=== PATIENT | male | born 1985 | race Caucasian/White ===

== ENCOUNTER 2019-11-17 14:26 | Emergency (ER) | payer OTHER ==
[~2019-11-17] VITALS: Ht 180.3 cm; Wt 99.8 kg
[2019-11-17] MEDS ORDERED: ZESTRIL10 MG PO (14:42)
[2019-11-17] MEDS ORDERED: CLOMIPHENE CITR50 MG PO (14:42)
[2019-11-17] MEDS ORDERED: LEXAPRO 10 MG T10 M1 PO (14:42)
[2019-11-17] MEDS ORDERED: VIAGRA100 MG PO (14:43)
[2019-11-17 15:15] LABS: INFLUENZA A ANTIGEN Negative (Negative); INFLUENZA B ANTIGEN Negative (Negative)
[2019-11-17 16:36] LABS: ABSOLUTE BASOPHILS 0.1 thou/uL (0.0-0.2); ABSOLUTE EOSINOPHILS 0.2 thou/uL (0.0-0.7); ABSOLUTE LYMPHOCYTES 1.4 thou/uL (0.8-5.3); ABSOLUTE NEUTROPHILS 6.6 thou/uL (1.6-8.1); BASOPHILS 0.8 %; HEMATOCRIT 41.1 % (42.0-52.0); HEMOGLOBIN 14.1 gm/dL (14.0-18.0); LYMPHOCYTES 15.2 %; MCH 30.2 pg (26.0-34.0); MCHC 34.3 g/dL (28.0-37.0); MCV 88.2 fL (80.0-100.0); MONOCYTES 11.3 %; MPV 8.6 fl. (7.2-11.1); NUCLEATED RBCS 0 /100WBC; PLATELET COUNT* 332 thou/uL (150-400); POLYS 70.7 %; RBC 4.66 mil/uL (4.50-6.00); RDW-CV 12.6 % (10.5-14.5); WBC 9.3 thou/uL (4.0-11.0)
[2019-11-17 16:51] LABS: CALCIUM 9.7 mg/dL (8.5-10.1); CREATININE 1.1 mg/dL (0.6-1.3); POTASSIUM 4.3 mmol/L (3.5-5.1)
[2019-11-17 16:56] LABS: ALBUMIN 3.9 g/dL (3.4-5.0); TOTAL BILIRUBIN 0.3 mg/dL (<0.1-1.0); TOTAL PROTEIN 8.4 g/dL (6.4-8.2)
[2019-11-17] MEDS ORDERED: MEDROL DOSPAK21 TA1 PO (16:57)
[2019-11-17] MEDS ORDERED: TESSALON PERLE100 MG PO (16:57)
[2019-11-17] MEDS ORDERED: VENTOLIN HFA 1818 GM INH (16:57)
[2019-11-17] MEDS ORDERED: AZITHROMYCIN 2250 MG PO (16:57)
[2019-11-17 17:12] VITALS: BP 118/96
== END 2019-11-17 17:13 | disposition home or self-care (01) ==
LOC: M.ERS 14:26
PROVIDERS: Emergency Medicine; Nurse Practitioner Family
DX: J40 Bronchitis, not specified as acute or chronic (principal); I10 Essential (primary) hypertension; J18.9 Pneumonia, unspecified organism; Z79.899 Other long term (current) drug therapy

== ENCOUNTER 2019-12-21 00:11 | Emergency (ER) | payer OTHER ==
[~2019-12-21] VITALS: Ht 180.3 cm; Wt 90.7 kg
[~2019-12-21 00:11] MED LIST: AZITHROMYCIN 2250 MG PO; CLOMIPHENE CITR50 MG PO; LEXAPRO 10 MG T10 M1 PO; MEDROL DOSPAK21 TA1 PO; TESSALON PERLE100 MG PO; VENTOLIN HFA 1818 GM INH; VIAGRA100 MG PO; ZESTRIL10 MG PO
[2019-12-21] MEDS ORDERED: CLOMIPRAMINE HC50 M1 PO (00:24)
[2019-12-21 01:03] LABS: ABSOLUTE BASOPHILS 0.1 thou/uL (0.0-0.2); ABSOLUTE EOSINOPHILS 0.2 thou/uL (0.0-0.7); ABSOLUTE MONOCYTES 0.6 thou/uL (0.0-1.2); ABSOLUTE NEUTROPHILS 3.8 thou/uL (1.6-8.1); BASOPHILS 0.8 %; EOSINOPHILS 2.3 %; HEMATOCRIT 43.1 % (42.0-52.0); HEMOGLOBIN 14.5 gm/dL (14.0-18.0); LYMPHOCYTES 29.7 %; MCH 30.1 pg (26.0-34.0); MCHC 33.7 g/dL (28.0-37.0); MCV 89.3 fL (80.0-100.0); NUCLEATED RBCS 0 /100WBC; PLATELET COUNT* 237 thou/uL (150-400); POLYS 58.2 %; RBC 4.83 mil/uL (4.50-6.00); RDW-CV 13.3 % (10.5-14.5); WBC 6.6 thou/uL (4.0-11.0)
[2019-12-21 01:08] LABS: CALCIUM 8.6 mg/dL (8.5-10.1); POTASSIUM 3.5 mmol/L (3.5-5.1)
[2019-12-21 01:18] LABS: INR 1.1; PROTIME 11.3 Seconds (9.20-11.50)
[2019-12-21 01:19] LABS: TOTAL BILIRUBIN 0.7 mg/dL (<0.1-1.0); TOTAL PROTEIN 7.5 g/dL (6.4-8.2)
[2019-12-21 02:12] VITALS: BP 142/97
--- NOTE | 2019-12-31 13:53 | EKG ---
[place] [address] ELECTROCARDIOGRAM REPORT Name: DUDLEY SPARKS Room: [facility]#: [id number] Admission: 12/21/19 Attend Phys: Discharge: 12/21/19 Date of : 81 Date of Service: 12/21/19 0018 Report #: [id number] THIS REPORT FOR: cc: TOD - Zo family physician/PCP TOD - Zo family physician/PCP Moody Carrasco MD LOCATED WITHIN [facility] ~ THIS REPORT FOR: //name// [facility] ED Test Date: 2019-12-21 Test Time: 00:18:44 Pat Name: DUDLEY SPARKS Department: Room: Gender: M Voice Coach: BUFFY : 1985 Requested By: Tg Farah Order Number: [id number] MD: Moody Carrasco Measurements Intervals [place] Rate: 82 P: 14 [place]: 153 QRS: 14 QRSD: 83 T: 10 QT: 358 QTc: 418 Interpretive Statements Sinus rhythm No previous ECG available for comparison Electronically Signed On 12-21-2019 12:11:21 [employer] by Moody Carrasco [email or web address] <ELECTRONICALLY SIGNED> By: Moody Carrasco MD, FAC 12/21/19 1211 0018 0018 Moody Carrasco MD, LOCATED WITHIN [facility] /EPI
== END 2019-12-21 02:14 | disposition home or self-care (01) ==
LOC: M.ERS 00:11
PROVIDERS: Emergency Medicine
DX: I10 Essential (primary) hypertension (principal)

== ENCOUNTER 2020-09-21 10:20 | Emergency (ER) | payer OTHER ==
[~2020-09-21] VITALS: Ht 180.3 cm; Wt 104.3 kg
[~2020-09-21 10:20] MED LIST changes: +CLOMIPRAMINE HC50 M1 PO
[2020-09-21 11:18] VITALS: BP 146/74
== END 2020-09-21 11:20 | disposition home or self-care (01) ==
LOC: M.ERS 10:20
DX: S61.452A Open bite of left hand, initial encounter (principal); W55.81XA Bitten by other mammals, initial encounter; Y93.89 Activity, other specified; Y92.89 Other specified places as the place of occurrence of the external cause; Y99.8 Other external cause status